=== PATIENT | female | born 1975 | race Caucasian/White ===

== ENCOUNTER 2022-03-07 08:11 | Outpatient (CLI) | payer BC | END 2022-03-07 08:12 | disposition home or self-care (01) | LOC: CSHMAMMO 08:11 | PROVIDERS: ATTEND Obstetrics & Gynecology | DX: Z12.31 Encounter for screening mammogram for malignant neoplasm of breast (principal); Z80.3 Family history of malignant neoplasm of breast | CPT/HCPCS: 77063; 77067 ==

== ENCOUNTER 2023-08-26 08:52 | Outpatient (CLI) | payer BC | END 2023-08-26 08:53 | disposition home or self-care (01) | LOC: CSHMAMMO 08:52 | PROVIDERS: ATTEND Obstetrics & Gynecology | DX: Z12.31 Encounter for screening mammogram for malignant neoplasm of breast (principal); N64.89 Other specified disorders of breast; Z80.3 Family history of malignant neoplasm of breast | CPT/HCPCS: 77063; 77067 ==

== ENCOUNTER 2023-08-29 08:47 | Outpatient (CLI) | payer BC | END 2023-08-29 08:48 | disposition home or self-care (01) | LOC: CSHMAMMO 08:47 | PROVIDERS: ATTEND Obstetrics & Gynecology | DX: Q83.9 Congenital malformation of breast, unspecified (principal) | CPT/HCPCS: G0279 ==